=== PATIENT | male | born 2000 | race Caucasian/White ===

== ENCOUNTER 2023-12-30 09:52 | Emergency (ER) | payer OTHER ==
[~2023-12-30] VITALS: Ht 177.8 cm; Wt 67.0 kg
[2023-12-30 09:53] VITALS: BP 130/85; TEMP 98.3; O2SAT 97
[2023-12-30] MEDS ORDERED: LIDOCAINE 2% MDV 20ML VIAL SC ONE (11:10)
[2023-12-30] MEDS ORDERED: POLYSPORIN TOPICAL OINTMENT 15GM TOP ONE (11:25)
== END 2023-12-30 11:54 | disposition home or self-care (01) ==
LOC: M ED 09:52
DX: S41.112A Laceration without foreign body of left upper arm, initial encounter (principal); Y92.019 Unspecified place in single-family (private) house as the place of occurrence of the external cause; Y93.9 Activity, unspecified; Y99.9 Unspecified external cause status